=== PATIENT | male | born 1995 | race Caucasian/White ===

== ENCOUNTER → 2020-02-24 16:41 | Outpatient (CLI) | payer BC, SELFPAY ==
[2020-02-24 18:30] LABS: Alanine Aminotransfer ALT/SGPT 29 U/L (16-61); Creatinine, Serum 0.95 mg/dL (0.70-1.30); EST Glomerular Filtration Rate 102 mL/min (>60); Est Glom Filt Rate - Afr Amer 123 mL/min (>60)
[2020-02-24 22:00] LABS: Cholesterol 176 mg/dL (200); High Density Lipoprotein 59 mg/dL
== END ==
PROVIDERS: PCP Family Medicine; Referring Provider Family Medicine; Visit Provider Family Medicine
DX: Z00.00 Encounter for general adult medical examination without abnormal findings (principal); Z91.018 Allergy to other foods
CPT/HCPCS: 36415; 82465; 82565; 83718; 84460